=== PATIENT | male | born 1985 | race Caucasian/White ===

== ENCOUNTER 2016-10-06 21:25 | Emergency (ER) | payer OTHER ==
[2016-10-06] MEDS ORDERED: OPTIRAY 350 100 ML VIAL HMH IV ONE (21:26)
[2016-10-06] MEDS ORDERED: ONDANSETRON 4 MG VIAL ONE (22:28)
== END 2016-10-07 01:25 | disposition home or self-care (01) ==
LOC: ER 21:25
CPT/HCPCS: 74177 ×2; 96374 ×2; 99284; J2405; Q9967